=== PATIENT | female | born 1955 | race Caucasian/White ===

== ENCOUNTER 2017-05-28 15:28 | Inpatient (IN) | payer OTHER ==
[~2017-05-28] VITALS: Ht 162.5 cm; Wt 71.8 kg
[2017-05-28] VITALS (10 sets, daily range): BP systolic 141–169; BP diastolic 61–91
--- NOTE | ~2017-05-28 | EKG ---
[place], [place] ELECTROCARDIOGRAM REPORT NAME: ROBIN SMALLWOOD UNIT #: [id number] ROOM: 402 DOCTOR: NEWTON HOFFMAN,RAYMON BIRTHDATE: [birth year] DOS: 05/28/2017 IMPRESSION: 1. Sinus rhythm. 2. Normal QT interval. 3. Nonspecific ST-T changes. RAYMON GLEZ MD CM:EKGRPT:ELECTROCARDIOGRAM REPORT [id number] RAYMON GLEZ MD
[2017-05-28 16:04] LABS: BASO % 0.2 % (0.0-1.0); EOS % 0.1 % (1.0-4.0); HEMATOCRIT 44.1 % (37.0-47.0); LYMPH # 2.3 10*3/uL (1.3-4.4); LYMPH % 19.5 % (27.0-41.0); MEAN CELL VOLUME 89.6 fl (81.0-99.0); MEAN CORPUSCULAR HGB 30.5 pg (27.0-31.0); MEAN PLATELET VOLUME 10.3 fl (9.6-12.3); MONO # 0.8 10*3/uL (0.1-1.0); MONO % 6.8 % (3.0-9.0); NEUT # 8.7 10*3/uL (2.3-7.9); PLATELET COUNT AUTOMATED 190 10*3/uL (130-400); RED BLOOD COUNT 4.92 10*6/uL (4.10-5.10); WHITE BLOOD COUNT 11.9 10*3/uL (4.8-10.8)
[2017-05-28 16:09] LABS: URINE AMPHETAMINES < 1000 (1000ng/ml); URINE BARBITURATES < 200 (200ng/ml); URINE BENZODIAZEPINES < 200 (200ng/ml); URINE CANNABINOIDS (THC) < 50 (50ng/ml); URINE COCAINE < 300 (300ng/ml); URINE METHADONE < 300 (300ng/ml); URINE OPIATES < 300 (300ng/ml)
[2017-05-28 16:12] LABS: URINE PHENCYCLIDINE < 25 (25ng/ml)
[2017-05-28 16:15] LABS: BILIRUBIN NEGATIVE (NEGATIVE); BLOOD 2+ (NEGATIVE); CLARITY SL CLOUDY (CLEAR); COLOR YELLOW (YELLOW); GLUCOSE 3+ (NEGATIVE); KETONE 2+ (NEGATIVE); LEUKO ESTERASE NEGATIVE (NEGATIVE); NITRITE POSITIVE (NEGATIVE); PH 5.5 (5.0-9.0); SPECIFIC GRAVITY <= 1.005 (1.005-1.030); UROBILINOGEN 0.2 E.U./dl (0.2-1.0)
[2017-05-28 16:18] LABS: CREATININE 1.49 mg/dL (0.55-1.02); POTASSIUM 4.2 mmol/L (3.5-5.1); TOTAL PROTEIN 8.1 gm/dL (6.4-8.2)
[2017-05-28 16:24] LABS: BACTERIA 2+
[2017-05-28 16:25] LABS: RBC 16-20 rbc/hpf (0-2); WBC 0-2 wbc/hpf (0-5)
[2017-05-28 20:36] LABS: CREATININE 1.45 mg/dL (0.55-1.02); POTASSIUM 3.5 mmol/L (3.5-5.1)
[2017-05-28] MEDS ORDERED: LANTUS SOL100 UNIT/1 SQ (21:35)
[2017-05-28] MEDS ORDERED: NOVOLOG100 UNIT/1 SQ (21:36)
[2017-05-28] MEDS ORDERED: TRAZODONE150 MG PO (21:36)
[2017-05-29] VITALS: BP 150/83
[2017-05-29 04:00] VITALS: BP 141/71
[2017-05-29 04:48] LABS: BASO % 0.2 % (0.0-1.0); EOS # 0.1 10*3/uL (0.0-0.4); EOS % 0.8 % (1.0-4.0); HEMATOCRIT 37.9 % (37.0-47.0); HEMOGLOBIN 13.1 g/dl (12.0-16.0); LYMPH # 3.3 10*3/uL (1.3-4.4); LYMPH % 34.8 % (27.0-41.0); MEAN CORPUSCULAR HGB 31.1 pg (27.0-31.0); MEAN CORPUSCULAR HGB CONC 34.6 g/dl (33.0-37.0); MONO # 0.9 10*3/uL (0.1-1.0); MONO % 9.8 % (3.0-9.0); NEUT # 5.1 10*3/uL (2.3-7.9); PLATELET COUNT AUTOMATED 139 10*3/uL (130-400); RED BLOOD COUNT 4.21 10*6/uL (4.10-5.10); RED CELL DISTRI WIDTH 12.2 % (0-14.5); WHITE BLOOD COUNT 9.5 10*3/uL (4.8-10.8)
[2017-05-29 04:52] LABS: ACT PARTIAL THROMBO TIME 23.6 SECONDS (20.8-31.5); INTERNATIONAL NORM RATIO 1.3 (2.0-3.5)
[2017-05-29 04:58] LABS: ALBUMIN 2.9 gm/dl (3.1-4.5); ALKALINE PHOSPHATASE 62 U/L (45-117); CHLORIDE 103 mmol/L (98-107); CHOLESTEROL 182 mg/dL (<200); CREATININE 0.86 mg/dL (0.55-1.02); HDL CHOLESTEROL 26 mg/dl (40-60); LDL CHOLESTEROL 86 mg/dL (9-159); PHOSPHOROUS 1.2 mg/dL (2.5-4.9); SGOT/AST 73 IU/L (3-35); SGPT/ALT 40 U/L (12-78); TOTAL PROTEIN 6.3 gm/dL (6.4-8.2); TRIGLYCERIDES 351 mg/dl (<150); VLDL CHOLESTEROL 70 mg/dL (6-40)
[2017-05-29 04:59] LABS: FREE T4 0.78 ng/dl (0.76-1.46)
[2017-05-29 05:04] LABS: BUN 27 mg/dl (7-24); POTASSIUM 3.4 mmol/L (3.5-5.1)
[2017-05-29 05:07] LABS: SODIUM 139 mmol/L (136-145)
[2017-05-29 08:00] VITALS: BP 119/85
[2017-05-29 08:10] LABS: VITAMIN D, 25-HYDROXY 26.1 ng/mL (30-100)
[2017-05-29] MEDS ORDERED: ASPIRIN ADULT L81 M1 PO (09:42)
[2017-05-29] MEDS ORDERED: OMEPRAZOLE40 MG PO (09:43)
[2017-05-29] MEDS ORDERED: NOVOLOG100 UNIT/1 SC (09:49)
[2017-05-29] MEDS ORDERED: NEURONTIN300 MG PO (11:53)
[2017-05-29] MEDS ORDERED: TOPROL XL25 MG PO (11:54)
[2017-05-29] MEDS ORDERED: BUPROPION HCL100 M2 PO (11:56)
[2017-05-29] MEDS ORDERED: LIPITOR80 MG PO (11:56)
[2017-05-29] MEDS ORDERED: LISINOPRIL40 MG PO (11:57)
[2017-05-29] MEDS ORDERED: LEVOXYL75 MCG PO (11:58)
[2017-05-29] MEDS ORDERED: HYDROXYZINE HCL25 M1 PO (11:59)
[2017-05-29 12:00] VITALS: BP 142/76
[2017-05-29] MEDS ORDERED: ALLERGY RELIEF4 M1 PO (12:02)
[2017-05-29 16:00] VITALS: BP 137/79
[2017-05-29] MEDS ORDERED: LANTUS SOL100 UNIT/1 SQ (17:29)
[2017-05-29 20:00] VITALS: BP 157/80
[2017-05-30] VITALS: BP 148/72
[2017-05-30 07:00] LABS: BASO % 0.5 % (0.0-1.0); EOS # 0.1 10*3/uL (0.0-0.4); EOS % 2.4 % (1.0-4.0); HEMATOCRIT 36.6 % (37.0-47.0); HEMOGLOBIN 12.2 g/dl (12.0-16.0); LYMPH # 1.6 10*3/uL (1.3-4.4); LYMPH % 41.3 % (27.0-41.0); MEAN CORPUSCULAR HGB 31.2 pg (27.0-31.0); MEAN CORPUSCULAR HGB CONC 33.3 g/dl (33.0-37.0); MEAN PLATELET VOLUME 10.8 fl (9.6-12.3); MONO # 0.2 10*3/uL (0.1-1.0); MONO % 6.1 % (3.0-9.0); NEUT # 1.9 10*3/uL (2.3-7.9); NEUT % 49.4 % (47.0-73.0); RED BLOOD COUNT 3.91 10*6/uL (4.10-5.10); RED CELL DISTRI WIDTH 12.3 % (0-14.5); WHITE BLOOD COUNT 3.8 10*3/uL (4.8-10.8)
[2017-05-30 07:01] LABS: MEAN CELL VOLUME 93.6 fl (81.0-99.0); PLATELET COUNT AUTOMATED 82 10*3/uL (130-400)
[2017-05-30 07:25] LABS: CHLORIDE 106 mmol/L (98-107); CREATININE 0.92 mg/dL (0.55-1.02); POTASSIUM 3.6 mmol/L (3.5-5.1); SODIUM 139 mmol/L (136-145)
[2017-05-30 07:35] LABS: BUN 16 mg/dl (7-24)
[2017-05-30 08:00] VITALS: BP 160/90
[2017-05-30 12:00] VITALS: BP 166/90
[2017-05-31 08:12] LABS: HEPATITIS B SURFACE AG Negative (Negative); HEPATITIS C VIRUS ANTIBODY 0.2 s/co (0.0-0.9)
== END 2017-05-30 15:46 | disposition home or self-care (01) | DRG 637 ==
LOC: ED 15:28 → 4E 18:25 → EDHOLD 18:25 → ICCU 18:33 → 4E 05-29 17:15
PROVIDERS: Emergency Medicine; Hospitalist; Internal Medicine; ADMIT Internal Medicine
DX: E11.01 Type 2 diabetes mellitus with hyperosmolarity with coma (principal); G93.41 Metabolic encephalopathy; N17.0 Acute kidney failure with tubular necrosis; R65.11 Systemic inflammatory response syndrome (SIRS) of non-infectious origin with acute organ dysfunction; E44.0 Moderate protein-calorie malnutrition; E11.65 Type 2 diabetes mellitus with hyperglycemia; E83.39 Other disorders of phosphorus metabolism; K76.0 Fatty (change of) liver, not elsewhere classified; E83.41 Hypermagnesemia; R74.0 Nonspecific elevation of levels of transaminase and lactic acid dehydrogenase [LDH]; E87.6 Hypokalemia; I10 Essential (primary) hypertension; M19.90 Unspecified osteoarthritis, unspecified site; I25.10 Atherosclerotic heart disease of native coronary artery without angina pectoris; E78.2 Mixed hyperlipidemia; R82.71 Bacteriuria; E03.9 Hypothyroidism, unspecified; K21.9 Gastro-esophageal reflux disease without esophagitis; Z68.27 Body mass index [BMI] 27.0-27.9, adult; Z88.0 Allergy status to penicillin; Z98.891 History of uterine scar from previous surgery; I25.2 Old myocardial infarction; Z79.4 Long term (current) use of insulin; Z87.891 Personal history of nicotine dependence; Z82.49 Family history of ischemic heart disease and other diseases of the circulatory system; Z79.82 Long term (current) use of aspirin; Z79.899 Other long term (current) drug therapy

== ENCOUNTER → 2017-12-16 | Outpatient (CLI) | payer OTHER ==
[~2017-12-16] MED LIST: ALLERGY RELIEF4 M1 PO; ASPIRIN ADULT L81 M1 PO; BUPROPION HCL100 M2 PO; HYDROXYZINE HCL25 M1 PO; LANTUS SOL100 UNIT/1 SQ; LEVOXYL75 MCG PO; LIPITOR80 MG PO; LISINOPRIL40 MG PO; MACROBID100 M1 PO; NEURONTIN300 MG PO; NOVOLOG100 UNIT/1 SC; NOVOLOG100 UNIT/1 SQ; OMEPRAZOLE40 MG PO; TOPROL XL25 MG PO; TRAZODONE150 MG PO
== END | disposition home or self-care (01) ==
LOC: RAD 14:00
DX: R05 Cough (principal); R06.00 Dyspnea, unspecified; R09.89 Other specified symptoms and signs involving the circulatory and respiratory systems; I10 Essential (primary) hypertension; E11.9 Type 2 diabetes mellitus without complications; Z87.891 Personal history of nicotine dependence

== ENCOUNTER 2018-01-04 14:32 | Emergency (ER) | payer OTHER ==
[~2018-01-04] VITALS: Wt 90.7 kg
[~2018-01-04 14:32] MED LIST changes: -MACROBID100 M1 PO
[2018-01-04 15:38] LABS: BILIRUBIN NEGATIVE (NEGATIVE); BLOOD NEGATIVE (NEGATIVE); CLARITY CLEAR (CLEAR); COLOR YELLOW (YELLOW); GLUCOSE 2+ (NEGATIVE); KETONE NEGATIVE (NEGATIVE); LEUKO ESTERASE 1+ (NEGATIVE); NITRITE NEGATIVE (NEGATIVE)
[2018-01-04 15:43] LABS: BASO % 0.1 % (0.0-1.0); EOS # 0.1 10*3/uL (0.0-0.4); EOS % 1.6 % (1.0-4.0); HEMATOCRIT 36.9 % (37.0-47.0); HEMOGLOBIN 11.9 g/dl (12.0-16.0); LYMPH # 1.1 10*3/uL (1.3-4.4); LYMPH % 14.1 % (27.0-41.0); MEAN CELL VOLUME 96.6 fl (81.0-99.0); MEAN CORPUSCULAR HGB 31.2 pg (27.0-31.0); MEAN CORPUSCULAR HGB CONC 32.2 g/dl (33.0-37.0); MEAN PLATELET VOLUME 10.5 fl (9.6-12.3); MONO # 0.6 10*3/uL (0.1-1.0); MONO % 7.7 % (3.0-9.0); NEUT # 5.7 10*3/uL (2.3-7.9); NEUT % 76.2 % (47.0-73.0); PLATELET COUNT AUTOMATED 137 10*3/uL (130-400); RED BLOOD COUNT 3.82 10*6/uL (4.10-5.10); RED CELL DISTRI WIDTH 13.2 % (0-14.5); WHITE BLOOD COUNT 7.5 10*3/uL (4.8-10.8)
[2018-01-04 15:45] LABS: BACTERIA 1+
[2018-01-04 15:46] LABS: EPITHELIAL CELLS 31-40; WBC 31-40 wbc/hpf (0-5)
[2018-01-04 15:51] LABS: INTERNATIONAL NORM RATIO 1.2 (2.0-3.5)
[2018-01-04 16:01] LABS: ALBUMIN 3.7 gm/dl (3.1-4.5); ALKALINE PHOSPHATASE 93 U/L (45-117); BUN 13 mg/dl (7-24); CHLORIDE 99 mmol/L (98-107); CREATININE 1.39 mg/dL (0.55-1.02); POTASSIUM 4.9 mmol/L (3.5-5.1); SGOT/AST 35 IU/L (3-35); SGPT/ALT 24 U/L (12-78); SODIUM 136 mmol/L (136-145); TOTAL PROTEIN 7.7 gm/dL (6.4-8.2)
[2018-01-04 16:02] LABS: TROPONIN I < 0.015 ng/ml (<0.045)
[2018-01-04] MEDS ORDERED: MACROBID100 M1 PO (17:38)
== END 2018-01-04 17:41 | disposition home or self-care (01) ==
LOC: ED 14:32
PROVIDERS: Physician Assistant
DX: N39.0 Urinary tract infection, site not specified (principal); N17.9 Acute kidney failure, unspecified; Z88.0 Allergy status to penicillin; Z79.899 Other long term (current) drug therapy; Z79.82 Long term (current) use of aspirin; Z87.891 Personal history of nicotine dependence

== ENCOUNTER 2018-09-29 09:41 | Emergency (ER) | payer OTHER ==
[~2018-09-29] VITALS: Ht 160 cm; Wt 81.6 kg
--- NOTE | ~2018-09-29 | EKG ---
[place], [place] ELECTROCARDIOGRAM REPORT NAME: ROBIN SMALLWOOD UNIT #: [id number] ROOM: DOCTOR: EPIPHANY DRAFT REPORT BIRTHDATE: [birth year] [facility] Test Date: 2018-09-29 Test Time: 10:11:03 Pat Name: ROBIN SMALLWOOD Department: Room: Gender: F Cad Specialist: : [id number] Requested By: CJ COLEMAN DNP Order Number: [id number] Reading MD: Vannessa Batista MD Measurements Intervals [place] Rate: 88 P: 10 WI: 176 QRS: -7 QRSD: 98 T: 26 QT: 379 QTc: 459 Interpretive Statements Sinus rhythm Left ventricular hypertrophy Electronically Signed On 10-04-2018 15:01:43 PDT by Vannessa Batista MD CM:EKGRPT:ELECTROCARDIOGRAM REPORT [id number] CJ COLEMAN DNP EPIPHANY DRAFT REPORT CJ COLEMAN DNP
[~2018-09-29 09:41] MED LIST changes: +MACROBID100 M1 PO
[2018-09-29 10:20] LABS: HEMATOCRIT 41.1 % (37.0-47.0); HEMOGLOBIN 12.9 g/dl (12.0-16.0); MEAN CELL VOLUME 96.7 fl (81.0-99.0); MEAN CORPUSCULAR HGB 30.4 pg (27.0-31.0); MEAN CORPUSCULAR HGB CONC 31.4 g/dl (33.0-37.0); MEAN PLATELET VOLUME 11.1 fl (9.6-12.3); PLATELET COUNT AUTOMATED 111 10*3/uL (130-400); RED BLOOD COUNT 4.25 10*6/uL (4.10-5.10); RED CELL DISTRI WIDTH 13.8 % (0-14.5); WHITE BLOOD COUNT 7.8 10*3/uL (4.8-10.8)
[2018-09-29 10:33] LABS: ACT PARTIAL THROMBO TIME 25.1 SECONDS (20.8-31.5); INTERNATIONAL NORM RATIO 1.1 (2.0-3.5)
[2018-09-29 10:40] LABS: BASOPHILS 1 % (0-1); PLATELET SUFFICIENCY LOW (NORMAL); TOTAL CELLS COUNTED 100 #CELLS
[2018-09-29 10:43] LABS: ALBUMIN 3.4 gm/dl (3.1-4.5); ALKALINE PHOSPHATASE 109 U/L (45-117); BUN 12 mg/dl (7-24); CHLORIDE 101 mmol/L (98-107); CREATININE 1.46 mg/dL (0.55-1.02); LIPASE 108 U/L (73-393); POTASSIUM 4.4 mmol/L (3.5-5.1); SGOT/AST 26 IU/L (3-35); SGPT/ALT 24 U/L (12-78); SODIUM 138 mmol/L (136-145); TOTAL PROTEIN 7.2 gm/dL (6.4-8.2)
[2018-09-29 10:45] LABS: TROPONIN I < 0.015 ng/ml (<0.045)
[2018-09-29 11:28] LABS: BILIRUBIN NEGATIVE (NEGATIVE); BLOOD NEGATIVE (NEGATIVE); CLARITY CLEAR (CLEAR); COLOR YELLOW (YELLOW); GLUCOSE NEGATIVE (NEGATIVE); KETONE NEGATIVE (NEGATIVE); LEUKO ESTERASE TRACE (NEGATIVE); NITRITE NEGATIVE (NEGATIVE); PH 5.5 (5.0-9.0); SPECIFIC GRAVITY 1.015 (1.005-1.030); UROBILINOGEN 0.2 E.U./dl (0.2-1.0)
== END 2018-09-29 12:47 | disposition home or self-care (01) ==
LOC: ED 09:41
PROVIDERS: Nurse Practitioner Family
DX: R55 Syncope and collapse (principal); E11.40 Type 2 diabetes mellitus with diabetic neuropathy, unspecified; I10 Essential (primary) hypertension; E03.9 Hypothyroidism, unspecified; I25.2 Old myocardial infarction; I25.10 Atherosclerotic heart disease of native coronary artery without angina pectoris; Z88.0 Allergy status to penicillin; Z79.2 Long term (current) use of antibiotics; Z79.899 Other long term (current) drug therapy; Z79.4 Long term (current) use of insulin; Z79.82 Long term (current) use of aspirin; Z79.891 Long term (current) use of opiate analgesic

== ENCOUNTER → 2024-11-16 | Outpatient (CLI) | payer OTHER ==
[2024-11-16 12:15] LABS: BASO % 0.4 % (0.0-1.0); EOS # 0.2 10*3/uL (0.0-0.4); EOS % 4.5 % (1.0-4.0); HEMATOCRIT 37.8 % (37.0-47.0); MEAN CELL VOLUME 103.6 fl (81.0-99.0); MEAN CORPUSCULAR HGB 32.3 pg (27.0-31.0); MEAN CORPUSCULAR HGB CONC 31.2 g/dl (33.0-37.0); MEAN PLATELET VOLUME 10.9 fl (9.6-12.3); MONO # 0.5 10*3/uL (0.1-1.0); MONO % 9.1 % (3.0-9.0); NEUT # 2.6 10*3/uL (2.3-7.9); NEUT % 52.1 % (47.0-73.0); PLATELET COUNT AUTOMATED 111 10*3/uL (130-400); RED BLOOD COUNT 3.65 10*6/uL (4.10-5.10); RED CELL DISTRI WIDTH 14.2 % (0-14.5); WHITE BLOOD COUNT 5.1 10*3/uL (4.8-10.8)
[2024-11-16 12:44] LABS: TOTAL PROTEIN 7.5 gm/dL (6.0-8.0)
== END | disposition home or self-care (01) ==
LOC: LAB 11:24
PROVIDERS: ATTEND Nurse Practitioner Family
DX: Z01.818 Encounter for other preprocedural examination (principal); I45.10 Unspecified right bundle-branch block

== ENCOUNTER → 2025-02-27 | Outpatient (CLI) | payer OTHER ==
[~2025-02-27] MED LIST changes: +ADMELOG100 UNIT/1 SQ; +AMLODIPINE BESYL5 MG PO; +BUMETANIDE1 MG PO; +CARVEDILOL3.125 MG PO; +CEFTRIAXONE2 G1 IV; +Carafate1 GM PO; +FUROSEMIDE40 MG PO; +LACTINEX 0.2 MG1 TAB PO; +LANTUS100 UNIT/1 SC; +LOSARTAN POTASS50 M1 PO; +LYRICA75 M1 PO; +NORPRAMIN10 MG PO; +NORVASC5 MG PO; +SINGULAIR10 M1 PO; +TRESIBA FL100 UNIT/1 SQ; +ZESTRIL40 MG PO
== END | disposition home or self-care (01) ==
LOC: ORTHO 08:18
PROVIDERS: ATTEND Orthopaedic Surgery
DX: S82.841K Displaced bimalleolar fracture of right lower leg, subsequent encounter for closed fracture with nonunion (principal); S82.202A Unspecified fracture of shaft of left tibia, initial encounter for closed fracture; M25.471 Effusion, right ankle; M77.31 Calcaneal spur, right foot; X58.XXXD Exposure to other specified factors, subsequent encounter; X58.XXXA Exposure to other specified factors, initial encounter; Y93.89 Activity, other specified; Y92.89 Other specified places as the place of occurrence of the external cause; Y99.8 Other external cause status

== ENCOUNTER → 2025-03-25 | Outpatient (CLI) | payer OTHER | END | disposition home or self-care (01) | LOC: ORTHO 01:49 | PROVIDERS: ATTEND Orthopaedic Surgery | DX: M84.362A Stress fracture, left tibia, initial encounter for fracture (principal); M84.364A Stress fracture, left fibula, initial encounter for fracture; M85.88 Other specified disorders of bone density and structure, other site; R60.0 Localized edema ==

== ENCOUNTER → 2025-04-11 | Day surgery (SDC) | payer OTHER ==
[~2025-04-11] VITALS: Ht 160 cm; Wt 91.6 kg
[~2025-04-11] MED LIST changes: +Dexamethasone Sodium Phospha 4 MG/ML VIAL IV ONE; +EPINEPHrine/Lidocaine Hydroc 20 ML VIAL ONE; +Lactated Ringer's Solution 1,000 ML IV ONE; +Lidocaine Hydrochloride 5 ML VIAL IV ONE; +Ondansetron Hydrochloride 4 MG/2 ML VIAL IV ONE; +PROPOFOL 200 MG/20 ML VIAL IV ONE
[2025-04-11 07:15] VITALS: BP 155/66
[2025-04-11 09:21] VITALS: BP 147/70
[2025-04-11 09:36] VITALS: BP 146/75
[2025-04-11 09:51] VITALS: BP 156/79
== END | disposition home or self-care (01) ==
LOC: SDC 04-09 08:00
PROVIDERS: ATTEND Orthopaedic Surgery
DX: M86.8X7 Other osteomyelitis, ankle and foot (principal); I25.10 Atherosclerotic heart disease of native coronary artery without angina pectoris; I25.2 Old myocardial infarction; E78.00 Pure hypercholesterolemia, unspecified; E11.22 Type 2 diabetes mellitus with diabetic chronic kidney disease; I12.9 Hypertensive chronic kidney disease with stage 1 through stage 4 chronic kidney disease, or unspecified chronic kidney disease; N18.30 Chronic kidney disease, stage 3 unspecified; K76.0 Fatty (change of) liver, not elsewhere classified; K21.9 Gastro-esophageal reflux disease without esophagitis; E03.9 Hypothyroidism, unspecified; Z98.890 Other specified postprocedural states; Z88.0 Allergy status to penicillin

== ENCOUNTER → 2025-05-09 | Day surgery (SDC) | payer OTHER ==
[~2025-05-09] MED LIST changes: +Bupivacaine Hydrochloride/Ep2 30 ML VIAL ONE; -EPINEPHrine/Lidocaine Hydroc 20 ML VIAL ONE; -Lactated Ringer's Solution 1,000 ML IV ONE; +Midazolam Hydrochloride 2 MG/2 ML VIAL IV ONE; +SEVOFLURANE 250 ML BOT INH ONE; +Water, Sterile 10 ML VIAL IV ONE; +Water, Sterile 10 ML VIAL ONE
[2025-05-09 06:20] VITALS: BP 151/67
[2025-05-09 08:31] VITALS: BP 129/58
[2025-05-09 08:46] VITALS: BP 126/55
[2025-05-09 09:01] VITALS: BP 134/59
[2025-05-09 09:16] VITALS: BP 139/59
[2025-05-09 09:31] VITALS: BP 137/68
== END | disposition home or self-care (01) ==
LOC: SDC 05-07 08:00
PROVIDERS: ATTEND Orthopaedic Surgery
DX: S82.891K Other fracture of right lower leg, subsequent encounter for closed fracture with nonunion (principal); I10 Essential (primary) hypertension; E11.9 Type 2 diabetes mellitus without complications; E78.5 Hyperlipidemia, unspecified; E07.9 Disorder of thyroid, unspecified; I25.2 Old myocardial infarction; Z98.891 History of uterine scar from previous surgery; Z98.890 Other specified postprocedural states; Z79.899 Other long term (current) drug therapy; Z88.0 Allergy status to penicillin; X58.XXXD Exposure to other specified factors, subsequent encounter

== ENCOUNTER → 2025-05-27 | Outpatient (CLI) | payer OTHER ==
[~2025-05-27] MED LIST changes: -Bupivacaine Hydrochloride/Ep2 30 ML VIAL ONE; -Dexamethasone Sodium Phospha 4 MG/ML VIAL IV ONE; -Lidocaine Hydrochloride 5 ML VIAL IV ONE; -Midazolam Hydrochloride 2 MG/2 ML VIAL IV ONE; -Ondansetron Hydrochloride 4 MG/2 ML VIAL IV ONE; -PROPOFOL 200 MG/20 ML VIAL IV ONE; -SEVOFLURANE 250 ML BOT INH ONE; -Water, Sterile 10 ML VIAL IV ONE; -Water, Sterile 10 ML VIAL ONE
== END | disposition home or self-care (01) ==
LOC: ORTHO 00:38
PROVIDERS: ATTEND Orthopaedic Surgery
DX: S82.841K Displaced bimalleolar fracture of right lower leg, subsequent encounter for closed fracture with nonunion (principal); M19.071 Primary osteoarthritis, right ankle and foot; M85.871 Other specified disorders of bone density and structure, right ankle and foot; X58.XXXD Exposure to other specified factors, subsequent encounter